=== PATIENT | male | born 1950 | race Caucasian/White ===

== ENCOUNTER 2016-10-24 12:35 | Emergency (ER) | payer BC ==
--- NOTE | ~2016-10-24 | CR116 ---
[facility] A Service of [facility] & [facility] RADIOLOGY TEXT RESULTS PATIENT: MODE GANNON LOCATION: CFTX : 48 UNIT #: [id number] AGE: [address]: Paige Neff APRN SEX: M ORDER DR: [id number] [facility] [address] [place], [place] [address] [id number] E MR#: [id number] Acc #: [id number] NAME: MODE GANNON : 1950 SEX: M STUDY DATE/TIME: 10/24/2016 13:26 UNIT: TX ROOM: STUDY DESCRIPTION: CR Finger 2 View Thumb Lt Attending Physician: Paige Neff A.P.R.N. Referring Physician: Tomas Wick M.D. Ordering Physician: Satish Fuentes M.D. Primary Care Physician: Charlene Primary Care Physician MEDICAL IMAGING REPORT This report is preliminary unless electronic signature is present EXAM Left thumb, 3 views; 10/24/2016. HISTORY Laceration to left thumb today. Cut thumb on power saw. Evaluate for foreign body. FINDINGS Three views of the left thumb demonstrate no fracture. There is a soft tissue laceration overlying the head of the first proximal phalanx. At the base of the laceration there are 2 punctate radiodensities. I cannot exclude foreign body. Clinical correlation is recommended. There is a 4 mm linear metallic foreign body at the base of the first metacarpal. There is degenerative change with osteophytic spurring at the heads of the first metacarpal and first proximal phalanx. IMPRESSION 1. No evidence of fracture. 2. Soft tissue laceration overlies the head of the first proximal phalanx. At the base of the laceration, there are 2 punctate radiodensities which could reflect foreign bodies. Clinical correlation is recommended. 3. 4 mm linear metallic foreign body overlying the base of the first metacarpal. Dictated by... Zhang Santiago M.D. THIS IS AN ELECTRONICALLY VERIFIED REPORT Zhang Santiago M.D. at 10/25/2016 6:29 AM KRT/jt [facility] A Service of [facility] & [facility] RADIOLOGY TEXT RESULTS PATIENT: MODE GANNON [id number] [birth year] UNIT #: [id number] AGE: [address]: Paige Neff APRN SEX: M ORDER DR: TD: 10/24/2016 16:04 JOB #: [id number] MEDICAL IMAGING REPORT Page 1 of 1 COPY
== END 2016-10-24 14:29 | disposition home or self-care (01) ==
LOC: CFTX 12:35 → CED 12:35 → CFTX 14:09
DX: S61.022A Laceration with foreign body of left thumb without damage to nail, initial encounter (principal); S61.211A Laceration without foreign body of left index finger without damage to nail, initial encounter; W45.8XXA Other foreign body or object entering through skin, initial encounter; Y92.009 Unspecified place in unspecified non-institutional (private) residence as the place of occurrence of the external cause; Z98.890 Other specified postprocedural states; Z23 Encounter for immunization
CPT/HCPCS: 12001; 73140; 90471; 90715; 99283